=== PATIENT | male | born 1945 | race Caucasian/White ===

== ENCOUNTER 2017-12-05 18:28 | Inpatient (IN) | payer MEDICARE, OTHER ==
[~2017-12-05] VITALS: Ht 172.7 cm; Wt 47.5 kg
[2017-12-05] MEDS ORDERED: FOLIC ACID 11 MG/TA1 PO (23:49)
[2017-12-05] MEDS ORDERED: NORVASC 10MG10 MG PO (23:49)
[2017-12-05] MEDS ORDERED: PRINIVIL40 MG PO (23:51)
[2017-12-05] MEDS ORDERED: TENORMIN 5050 MG/TAB PO (23:52)
[2017-12-05] MEDS ORDERED: ASPIRIN 81M81 MG/TA2 PO (23:53)
[2017-12-05] MEDS ORDERED: HYGROTON 2525 MG/TAB PO (23:53)
[2017-12-05] MEDS ORDERED: DEPAKOTE ER 50500 MG PO (23:54)
[2017-12-05] MEDS ORDERED: FLOMAX 0.40.4 MG/CAP PO (23:54)
[2017-12-06] VITALS (9 sets, daily range): BP systolic 88–168; BP diastolic 48–85; PULSE 48–117; TEMP 98–98.6
[2017-12-06 07:05] LABS: BASO % 0.3 % (0.0-2.0); EOS # 0.1 (0.0-0.7); EOS % 0.9 % (0-4.0); GRAN # 3.7 (1.4-6.5); GRAN % 63.7 % (42.2-75.2); HEMOGLOBIN 10.9 g/dl (13.5-18.0); LYMPH # 1.6 (1.2-3.4); LYMPH % 27.1 % (20.0-51.0); MEAN CELL VOLUME 93 fl (80.0-100.0); MEAN CORPUSCULAR HEMOGLOBIN 31 pg (27.0-31.0); MEAN CORPUSCULAR HGB CONC 33 g/dl (33.0-37.0); MEAN PLATELET VOLUME 10.6 fl (7.4-10.4); MONO # 0.5 (0.1-0.6); MONO % 7.8 % (1.7-9.3); PLATELET COUNT 209 K/mm3 (130-400); RED BLOOD COUNT 3.52 M/mm3 (4.20-5.60); REDCELL DISTRIBUTION WIDTH-CV 13.7 % (11.5-14.5)
[2017-12-06 07:11] LABS: CALCIUM 9.1 mg/dL (8.4-10.2); CREATININE, serum 1.02 mg/dL (0.66-1.25); POTASSIUM 3.3 mmol/L (3.4-5.0)
[2017-12-06 07:15] LABS: HEMATOCRIT 32.6 % (42.0-52.0)
[2017-12-06 13:17] LABS: COLLECTION METHOD CLEAN CATCH
[2017-12-06 13:23] LABS: PH 6 (5-8); SQUAMOUS EPITHELIAL None Seen /hpf; URINE APPEARANCE Clear; URINE BACTERIA None Seen /hpf; URINE BILIRUBIN Negative (NEGATIVE); URINE BLOOD Negative (NEGATIVE); URINE COLOR Yellow; URINE GLUCOSE Negative (NEGATIVE); URINE KETONE Trace (NEGATIVE); URINE LEUKOCYTE ESTERASE Negative (NEGATIVE); URINE NITRATE Negative (NEGATIVE); URINE PROTEIN(semi-quant) Negative (NEGATIVE); URINE RBC 0-2 /hpf; URINE UROBILINOGEN >=4.0 mg/dL (NEGATIVE)
[2017-12-07] VITALS (8 sets, daily range): BP systolic 113–154; BP diastolic 51–68; PULSE 52–65; TEMP 97.9–98.5
[2017-12-07 07:35] LABS: BASO % 0.5 % (0.0-2.0); EOS # 0.1 (0.0-0.7); EOS % 1.6 % (0-4.0); GRAN # 3.5 (1.4-6.5); GRAN % 55.9 % (42.2-75.2); HEMOGLOBIN 10.5 g/dl (13.5-18.0); LYMPH # 2.1 (1.2-3.4); LYMPH % 32.5 % (20.0-51.0); MEAN CELL VOLUME 91 fl (80.0-100.0); MEAN CORPUSCULAR HEMOGLOBIN 31 pg (27.0-31.0); MEAN CORPUSCULAR HGB CONC 34 g/dl (33.0-37.0); MEAN PLATELET VOLUME 10.5 fl (7.4-10.4); MONO # 0.6 (0.1-0.6); MONO % 8.7 % (1.7-9.3); PLATELET COUNT 185 K/mm3 (130-400); RED BLOOD COUNT 3.39 M/mm3 (4.20-5.60); REDCELL DISTRIBUTION WIDTH-CV 13.7 % (11.5-14.5)
[2017-12-07 07:46] LABS: HEMATOCRIT 30.8 % (42.0-52.0)
[2017-12-07 07:49] LABS: CALCIUM 8.8 mg/dL (8.4-10.2); CREATININE, serum 0.8 mg/dL (0.66-1.25); POTASSIUM 3.5 mmol/L (3.4-5.0)
[2017-12-08 06:57] LABS: BASO % 0.3 % (0.0-2.0); EOS # 0.1 (0.0-0.7); EOS % 1.9 % (0-4.0); GRAN # 2.8 (1.4-6.5); GRAN % 48.5 % (42.2-75.2); HEMATOCRIT 30.1 % (42.0-52.0); HEMOGLOBIN 10.3 g/dl (13.5-18.0); LYMPH # 2.3 (1.2-3.4); LYMPH % 39.2 % (20.0-51.0); MEAN CELL VOLUME 90 fl (80.0-100.0); MEAN CORPUSCULAR HEMOGLOBIN 31 pg (27.0-31.0); MEAN CORPUSCULAR HGB CONC 34 g/dl (33.0-37.0); MEAN PLATELET VOLUME 10.5 fl (7.4-10.4); MONO # 0.5 (0.1-0.6); MONO % 9.2 % (1.7-9.3); PLATELET COUNT 177 K/mm3 (130-400); RED BLOOD COUNT 3.33 M/mm3 (4.20-5.60); REDCELL DISTRIBUTION WIDTH-CV 13.8 % (11.5-14.5)
[2017-12-08 07:10] LABS: CALCIUM 8.8 mg/dL (8.4-10.2); CREATININE, serum 0.76 mg/dL (0.66-1.25)
[2017-12-08 08:28] VITALS: BP 148/53; PULSE 51; TEMP 97.9
[2017-12-08 10:24] VITALS: BP 112/72; BP 139/66; PULSE 65; PULSE 84
[2017-12-08] MEDS ORDERED: NICODERM C21 MG/PATC TD (11:27)
== END 2017-12-08 13:28 | disposition home or self-care (01) | DRG 682 ==
LOC: MEDICAL 18:28
PROVIDERS: Hospitalist; Nurse Practitioner; Physician Assistant
DX: N17.9 Acute kidney failure, unspecified (principal); E43 Unspecified severe protein-calorie malnutrition; R04.2 Hemoptysis; Z68.1 Body mass index [BMI] 19.9 or less, adult; R64 Cachexia; Z66 Do not resuscitate; R56.9 Unspecified convulsions; J38.7 Other diseases of larynx; I95.1 Orthostatic hypotension; F17.210 Nicotine dependence, cigarettes, uncomplicated; I10 Essential (primary) hypertension
CPT/HCPCS: 99222-AI; 99232-AI; 99239; G8978-GP; G8979-GP; J1644; J3475; J3480; J7030